=== PATIENT | male | born 1995 | race Caucasian/White ===

== ENCOUNTER 2024-01-22 11:38 | Emergency (ER) | payer OTHER ==
[~2024-01-22] VITALS: Ht 185.4 cm; Wt 81.8 kg
[2024-01-22] MEDS ORDERED: ADVIL (11:46)
[2024-01-22] MEDS ORDERED: CEPH500C PO (14:56)
[2024-01-22] MEDS: CEPHALEXIN 500 MG CAP PO ONE (15:03)
[2024-01-22 15:07] VITALS: BP 134/72; TEMP 98.2; O2SAT 99
== END 2024-01-22 15:08 | disposition home or self-care (01) ==
LOC: M ED 11:38
DX: S81.031A Puncture wound without foreign body, right knee, initial encounter (principal); S70.311A Abrasion, right thigh, initial encounter; S50.812A Abrasion of left forearm, initial encounter; S83.91XA Sprain of unspecified site of right knee, initial encounter; W26.8XXA Contact with other sharp object(s), not elsewhere classified, initial encounter; Y92.89 Other specified places as the place of occurrence of the external cause; Y93.89 Activity, other specified; Y99.8 Other external cause status

== ENCOUNTER 2024-02-07 17:38 | Emergency (ER) | payer OTHER ==
[~2024-02-07] VITALS: Ht 185.4 cm; Wt 91.8 kg
[2024-02-07 17:38] VITALS: BP 138/75; TEMP 98.3; O2SAT 99
[~2024-02-07 17:38] MED LIST: ADVIL; CEPH500C PO
[2024-02-07] MEDS ORDERED: CEPH500C PO (21:12)
[2024-02-07] MEDS: CEPHALEXIN 500 MG CAP PO ONE (21:21)
[2024-02-07] MEDS: LIDOCAINE 1% MDV 20ML VIAL SC ONE (21:26)
== END 2024-02-07 21:33 | disposition home or self-care (01) ==
LOC: M ED 17:38
DX: S01.01XA Laceration without foreign body of scalp, initial encounter (principal); Y92.9 Unspecified place or not applicable; Y93.9 Activity, unspecified; Y99.0 Civilian activity done for income or pay; W01.198A Fall on same level from slipping, tripping and stumbling with subsequent striking against other object, initial encounter; F10.10 Alcohol abuse, uncomplicated; Z79.2 Long term (current) use of antibiotics